=== PATIENT | female | born 1970 | race Caucasian/White ===

== ENCOUNTER 2017-01-26 20:49 | Emergency (ER) | payer MEDICARE ==
[2017-08-24] MEDS ORDERED: SUMATRIPTAN SUC50 MG PO (07:12)
[2017-08-24] MEDS ORDERED: [UNRECOGNIZED DRUG - OTHER] PO (07:12)
[2017-08-24] MEDS ORDERED: PROPRANOLOL HCL20 MG PO (07:14)
[2017-08-24] MEDS ORDERED: CELEXA20 MG PO (07:14)
[2017-08-24] MEDS ORDERED: NORCO 7.5-3251 EACH PO (09:17)
== END 2017-01-26 22:04 | disposition left against medical advice (07) ==
LOC: ER1 20:49
DX: Z53.21 Procedure and treatment not carried out due to patient leaving prior to being seen by health care provider (principal)

== ENCOUNTER → 2017-02-10 | Outpatient (CLI) | payer MEDICARE ==
[~2017-02-10] MED LIST: CELEXA20 MG PO; NORCO 7.5-3251 EACH PO; PROPRANOLOL HCL20 MG PO; SUMATRIPTAN SUC50 MG PO; [UNRECOGNIZED DRUG - OTHER] PO
== END ==
LOC: US 02-09 09:15 → KOH-I 08:00
DX: R10.11 Right upper quadrant pain (principal); K76.0 Fatty (change of) liver, not elsewhere classified
CPT/HCPCS: 76700

== ENCOUNTER → 2017-02-25 | Outpatient (CLI) | payer MEDICARE | LOC: US 16:24 | DX: R19.00 Intra-abdominal and pelvic swelling, mass and lump, unspecified site (principal) | CPT/HCPCS: 76830 ==

== ENCOUNTER → 2017-02-28 | Outpatient (CLI) | payer MEDICARE | LOC: CT 02-24 10:00 | DX: R10.11 Right upper quadrant pain (principal); R19.00 Intra-abdominal and pelvic swelling, mass and lump, unspecified site ==

== ENCOUNTER → 2017-03-02 | Outpatient (CLI) | payer MEDICARE | LOC: NM 14:16 | DX: R10.11 Right upper quadrant pain (principal) | CPT/HCPCS: 78227; A9537 ==

== ENCOUNTER 2021-08-28 07:42 | Emergency (ER) | payer OTHER ==
[~2021-08-28] VITALS: Ht 167.6 cm; Wt 90.7 kg
[~2021-08-28 07:42] MED LIST changes: +PREDNISONE 50 M50 MG PO; +TORADOL 10 MG T10 MG PO
[2021-08-28] MEDS ORDERED: MUCINEX1200 MG PO (10:30)
[2021-08-28] MEDS ORDERED: PROAIR HFA8.5 GM INH (10:30)
[2021-08-28] MEDS ORDERED: AZITHROMYCIN500 MG PO (10:30)
== END 2021-08-28 11:20 | disposition home or self-care (01) ==
LOC: ER1 07:42
DX: U07.1 COVID-19 (principal); J12.82 Pneumonia due to coronavirus disease 2019; H66.91 Otitis media, unspecified, right ear; Z23 Encounter for immunization
CPT/HCPCS: 71045; 99284; M0243